=== PATIENT | female | born 1965 | race Caucasian/White ===

== ENCOUNTER 2018-06-20 06:05 | Day surgery (SDC) | payer OTHER ==
[~2018-06-20 06:05] MED LIST: Buffered Lidocaine 0.9% SYRIN* 5 ML/SYR SYRINGE INTRADERM ONE; DiMENhydriNATE IV* 50 MG/ML VIAL IV PUSH ONE; Famotidine IV* 10 MG/ML 2 ML (20 mg) IV ONE
[2018-06-20] MEDS ORDERED: Buffered Lidocaine 0.9% SYRIN* 5 ML/SYR SYRINGE ONE (07:06)
[2018-06-20] MEDS ORDERED: Famotidine IV* 10 MG/ML 2 ML (20 mg) ONE (07:06)
[2018-06-20] MEDS ORDERED: DiMENhydriNATE IV* 50 MG/ML VIAL ONE (07:06)
[2018-06-20] MEDS ORDERED: Ketorolac INJ* 30 MG/ML 1 ML VIAL ONE (07:33)
[2018-06-20] MEDS ORDERED: Silver Nitrate/Potassium Nitr* 1 EA STICK ONE (07:53)
[2018-06-20] MEDS ORDERED: Midazolam* 1 MG/ML 5 ML VIAL (5 MG) ONE (07:59)
[2018-06-20] MEDS ORDERED: fentaNYL* 50 MCG/ML 2 ML VIAL (100 MCG VIAL) ONE ×4 (07:59→11:58)
[2018-06-20] MEDS ORDERED: Propofol* 10 MG/ML 20 ML BTL IV PUSH ONE (07:59)
[2018-06-20] MEDS ORDERED: Lidocaine 2% PF * 5 ML VIAL ONE ×2 (07:59→08:31)
[2018-06-20] MEDS ORDERED: Ondansetron INJ* 2 MG/ML VIAL ONE (07:59)
[2018-06-20] MEDS ORDERED: Dexamethasone IV* 4 MG/ML 1 ML (4 MG) ONE (07:59)
[2018-06-20] MEDS ORDERED: Chloroprocaine 2%* 20 ML VIAL ONE (08:31)
[2018-06-20] MEDS ORDERED: Ondansetron ODT TAB* 4 MG PO PRN (09:01)
[2018-06-20] MEDS ORDERED: Naloxone* 0.4 MG/ML 1 ML VIAL IV PRN (09:01)
[2018-06-20] MEDS ORDERED: Acetaminophen TAB* 325 MG ONE (09:57)
[2018-06-20] MEDS: fentaNYL* 50 MCG/ML 2 ML VIAL (100 MCG VIAL) IV PRN ×4 (10:22→12:28)
[2018-06-20] MEDS ORDERED: oxyCODONE/Acetamin 5/325 MG* TAB PO PRN (11:22)
[2018-06-20] MEDS ORDERED: oxyCODONE/Acetamin 5/325 MG* TAB ONE (11:50)
[2018-06-20] MEDS ORDERED: Ondansetron ODT TAB* 4 MG ONE (11:54)
[2018-06-20 13:11] VITALS: BP 141/76
[2018-06-20] MEDS ORDERED: Ibuprofen TAB* 600 MG ONE (13:18)
--- NOTE | 2018-06-21 01:39 | OP ---
OPERATIVE REPORT: DATE OF OPERATION: 06/20/18 DATE OF : 63 SURGEON: Patricio Hackett MD PRE-OP DIAGNOSES: 1. Perimenopausal bleeding. 2. Submucous mass. POST-OP DIAGNOSIS: Submucous fibroid. OPERATIVE PROCEDURE: D and C, hysteroscopy, MyoSure resection of fibroid. FINDINGS: On exam under anesthesia, the uterus was mid position. Cervix and vulva appeared normal. On hysteroscopy, there were 2 fibroids, 1 approximately 2 cm in size protruding into the cavity, the other approximately 0.5 cm in size in the left cornual region. COMPLICATIONS: None. ESTIMATED BLOOD LOSS: Minimal. FLUID DEFICIT: 350 cc of normal saline. DESCRIPTION OF PROCEDURE: The patient was identified, procedure was identified as D and C, hysterosc opy, MyoSure resection. The patient was taken to the operating room, prepped and draped in the usual fashion in dorsal lithotomy position under spinal anesthesia. Two single-tooth tenaculum was placed in the anterior lip of the cervix. Cervix was easily dilated up to #24 Hal dilator. The MyoSure h ysteroscope was inserted. The above findings were noted. The MyoSure regular was used to resect the submucous fibroid starting in the mid portion and working way out laterally until it was flushed wit h the endometrium. A similar procedure was done on the submucous fibroid that was in the left cornua l region with care not to resect into the cornu. At the end of the procedure, good hemostasis was ve rified. All instruments were removed from the vagina and the patient returned to the recovery room in stable condition. [id number]/[facility] #: [id number]
== END 2018-06-20 13:43 | disposition home or self-care (01) ==
LOC: OR 06:05
PROVIDERS: ATTEND Obstetrics & Gynecology
DX: D25.0 Submucous leiomyoma of uterus (principal); N92.4 Excessive bleeding in the premenopausal period
CPT/HCPCS: 81025; 88305; A9270-GY; J1100; J1240; J1885; J2250; J2400; J2405; J2704; J3010

== ENCOUNTER 2018-12-20 10:21 | Emergency (ER) | payer OTHER ==
[2018-12-20 10:33] VITALS: BP 139/83
--- NOTE | 2018-12-20 10:45 | UC ---
Eye Complaint HPI - HPI Summary HPI Summary: 53-year-old woman comes in with a chief complaint of right eye irritation and drainage 1-2 days. This morning was worse and she has some difficulty opening her eye. By cleaning it off she gets rid of the crusting. Denies any trauma or concern of foreign body. Does not wear contacts. No upper respiratory tract infection symptoms. - History of Current Complaint Chief Complaint: UCEye Stated Complaint: EYE COMPLAINT Time Seen by Provider: 12/20/18 10:24 Pain Intensity: 4 - Allergies/Home Medications Allergies/Adverse Reactions: Allergies Allergy/AdvReac Type Severity Reaction Status Date / Time ANESTHEISA Allergy Severe Itching Uncoded 12/20/18 10:35 PMH/Surg Hx/FS Hx/Imm Hx Previously Healthy: Yes - Surgical History Surgical History: Yes Surgery Procedure, Year, and Place: wisdom teeth extract , . lysis of abdominal adhesions. 2000 left wrist ganglion cyst excision - Family History Known Family History: Positive: Non-Contributory - Social History Alcohol Use: Occasionally Substance Use Type: None Smoking Status (MU): Never Smoked Tobacco Review of Systems All Other Systems Reviewed And Are Negative: Yes Constitutional: Positive: Negative Skin: Positive: Negative Eyes: Positive: Drainage, Eye Redness ENT: Positive: Negative Respiratory: Positive: Negative Cardiovascular: Positive: Negative Gastrointestinal: Positive: Negative Motor: Positive: Negative Neurovascular: Positive: Negative Musculoskeletal: Positive: Negative Neurological: Positive: Negative Psychological: Positive: Negative Is Patient Immunocompromised?: No Physical Exam Triage Information Reviewed: Yes Appearance: Well-Appearing, No Pain Distress, Well-Nourished Vital Signs: Initial Vital Signs Temp 96.1 F 12/20/18 10:26 Pulse 63 12/20/18 10:26 Resp 18 12/20/18 10:26 BP 139/83 12/20/18 10:26 Pulse Ox 99 12/20/18 10:26 Vital Signs Reviewed: Yes Eyes: Positive: Conjunctiva Inflamed - rt, Discharge - rt ENT: Negative: Nasal congestion, Nasal drainage Neck: Positive: Supple Respiratory: Positive: No respiratory distress Musculoskeletal Exam: Normal Musculoskeletal: Positive: Strength Intact, ROM Intact Neurological Exam: Normal Neurological: Positive: Alert, Muscle Tone Normal Psychological Exam: Normal Psychological: Positive: Age Appropriate Behavior Skin Exam: Normal Eye Complaint Course/Dx - Differential Dx/Diagnosis Provider Diagnosis: Conjunctivitis Discharge - Sign-Out/Discharge Documenting (check all that apply): Patient Departure All imaging exams completed and their final reports reviewed: No Studies - Discharge Plan Condition: Stable Disposition: HOME Prescriptions: Tobramycin 0.3% OPHTH.MAGUI* 1 drop RIGHT EYE Q4H #1 btl Patient Education Materials: Conjunctivitis (ED) Referrals: Vignesh Willett MD [Primary Care Provider] - Additional Instructions: FOLLOW UP WITH OPHTHALMOLOGY IF NOT COMPLETELY IMPROVED. GET REEVALUATED SOONER FOR ANY WORSENING OF YOUR CONDITION OR ANY QUESTIONS OR CONCERNS. - Billing Disposition and Condition Condition: STABLE Disposition: Home
== END 2018-12-20 10:48 | disposition home or self-care (01) ==
LOC: UCEAST 10:21
DX: H10.9 Unspecified conjunctivitis (principal); Z88.4 Allergy status to anesthetic agent
CPT/HCPCS: 99212; G0463